=== PATIENT | male | born 1995 | race Caucasian/White ===

== ENCOUNTER 2019-08-04 15:39 | Emergency (ER) | payer SELFPAY ==
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
[2019-08-04] MEDS ORDERED: IBUPROFEN 400 MG TAB ONE (16:10)
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
== END 2019-08-04 16:11 ==
LOC: ER 15:39
PROC: 0JQ00ZZ Repair Scalp Subcutaneous Tissue and Fascia, Open Approach (ICD-10-PCS; principal; 2019-08-04)
DX: S01.01XA Laceration without foreign body of scalp, initial encounter (principal); W22.8XXA Striking against or struck by other objects, initial encounter; Y92.009 Unspecified place in unspecified non-institutional (private) residence as the place of occurrence of the external cause
CPT/HCPCS: 99283